=== PATIENT | female | born 1985 ===

== ENCOUNTER 2021-09-07 15:28 | Outpatient (CLI) | payer OTHER | END 2021-09-07 15:37 | disposition home or self-care (01) | LOC: RAD 15:28 | PROVIDERS: ATTEND Obstetrics & Gynecology Gynecologic Oncology | DX: D64.89 Other specified anemias (principal); N39.0 Urinary tract infection, site not specified; R97.1 Elevated cancer antigen 125 [CA 125]; R79.1 Abnormal coagulation profile; Z11.52 Encounter for screening for COVID-19; I10 Essential (primary) hypertension ==

== ENCOUNTER 2021-09-09 11:45 | Inpatient (IN) | payer OTHER ==
[~2021-09-09] VITALS: Ht 154.9 cm; Wt 81.6 kg
[2021-09-10] MEDS ORDERED: KETOROLAC TROME10 MG (16:13)
== END 2021-09-11 10:11 | disposition home or self-care (01) | DRG 743 ==
LOC: EDUNIT# 11:45 → O/R 09-10 06:30 → SURH 09-10 11:45 → OB/GYN 09-10 17:25
PROVIDERS: ADMIT Obstetrics & Gynecology Gynecologic Oncology; ATTEND Obstetrics & Gynecology Gynecologic Oncology
PROC: 0UB74ZZ Excision of Bilateral Fallopian Tubes, Percutaneous Endoscopic Approach (ICD-10-PCS; 2021-09-10)
PROC: 0DNW4ZZ Release Peritoneum, Percutaneous Endoscopic Approach (ICD-10-PCS; 2021-09-10)
PROC: 0UT94ZZ Resection of Uterus, Percutaneous Endoscopic Approach (ICD-10-PCS; principal; 2021-09-10 14:00)
DX: N80.1 Endometriosis of ovary (principal); N70.11 Chronic salpingitis; N72 Inflammatory disease of cervix uteri; N99.4 Postprocedural pelvic peritoneal adhesions; N73.6 Female pelvic peritoneal adhesions (postinfective); R97.1 Elevated cancer antigen 125 [CA 125]